=== PATIENT | male | born 1945 | race African-American/Black ===

== ENCOUNTER 2022-02-01 08:38 | Inpatient (IN) ==
[2022-02-01] MEDS ORDERED: 0.9 % Sodium Chloride 1,000 ML IVC ONE (09:37)
[2022-02-01 10:08] LABS: Basophils % 0.3 %; Eosinophils # 0.1 K/mcL (0.0-0.6); Hematocrit 35.2 % (37.5-50.1); Hemoglobin 11.2 g/dL (12.9-16.9); Lymphocytes # 0.8 K/mcL (0.6-4.6); Lymphocytes % 6.3 %; Mean Corpuscular HGB Conc 31.8 g/dL (31.6-35.5); Mean Corpuscular Hemoglobin 31.6 pg (28.0-33.3); Mean Corpuscular Volume 99.4 fL (83.0-100.0); Mean Platelet Volume 9.4 fL (9.4-12.4); Monocytes # 1.2 K/mcL (0.0-1.3); Monocytes % 8.7 %; Nucleated Red Blood Cells 0.3 /100 WBC (0); Platelet Count 207 K/mcL (140-400); Red Blood Count 3.54 M/mcL (4.19-5.50); Red Cell Distribution Width 13.8 % (11.5-14.5); Segmented Neutrophils % 82.7 %; White Blood Count 13.4 K/mcL (4.3-11.1)
[2022-02-01 10:16] LABS: Bilirubin,Urine Negative (Negative); Blood,Urine Negative (Negative); Clarity,Urine Clear (Clear); Color,Urine Colorless (Yellow); Glucose,Urine (UA) Normal (Normal); Ketones,Urine Negative (Negative); Leukocyte Esterase,Urine Negative (Negative); Nitrite,Urine Negative (Negative); PH,Urine 7.5 pH Units (5.0-8.0); Protein,Urine Negative (Neg-Trace); Specific Gravity,Urine 1.011 (1.010-1.025); Urobilinogen,Urine Normal (Normal)
[2022-02-01] MEDS ORDERED: Piperacillin/Tazobactam 3.375 GM in 0.9 % Sodium Chloride Mini Bag 100 ML IVPB ONE (10:18)
[2022-02-01] MEDS ORDERED: Vancomycin 1,750 MG/517.5 ML IV.SOLN IVPB ONE (10:18)
[2022-02-01 10:32] LABS: Alanine Aminotransferase 35 Units/L (7-52); Albumin 3.7 g/dL (3.5-5.7); Albumin/Globulin Ratio 1.4 (1.1-2.2); Alkaline Phosphatase 67 Units/L (34-104); Aspartate Amino Transferase 23 Units/L (13-39); BUN/Creatinine Ratio 21 (6-26); Bilirubin,Direct 0.1 mg/dL (0.0-0.2); Bilirubin,Indirect 0.5 mg/dL (0.0-1.0); Bilirubin,Total 0.6 mg/dL (0.3-1.0); Blood Urea Nitrogen 19 mg/dL (8-23); Carbon Dioxide 28 mEq/L (23-29); Chloride 102 mEq/L (98-107); Globulin 2.6 g/dL (2.4-3.5); Glucose 106 mg/dL (70-105); Osmolality,Calculated 287 (280-300); Sodium 137 mEq/L (136-145); Total Protein 6.3 g/dL (6.4-8.9); Troponin I < 0.03 ng/mL (< 0.04); eGFR For African Americans > 60 (> 60); eGFR For Non-African Americans > 60 (> 60)
[2022-02-01 11:41] LABS: Adenovirus Not Detected (Not Detect); Bordetella Pertussis Not Detected (Not Detect); Chlamydophila pneumoniae Not Detected (Not Detect); Coronavirus 229E Not Detected (Not Detect); Coronavirus HKU1 Not Detected (Not Detect); Coronavirus NL63 Not Detected (Not Detect); Coronavirus OC43 Not Detected (Not Detect); Human Metapneumovirus Not Detected (Not Detect); Human Rhinovirus/Enterovirus Not Detected (Not Detect); Influenza A Subtype 2009 H1 Not Detected (Not Detect); Influenza B Not Detected (Not Detect); Mycoplasma pneumoniae Not Detected (Not Detect); Parainfluenza Virus 1 Not Detected (Not Detect); Parainfluenza Virus 2 Not Detected (Not Detect); Parainfluenza Virus 3 Not Detected (Not Detect); Parainfluenza Virus 4 Not Detected (Not Detect); Respiratory Syncytial Virus Not Detected (Not Detect); SARS-CoV-2 Not Detected (Not Detect)
[2022-02-01] MEDS ORDERED: Melatonin 3 MG TABLET PO PRN (13:18)
[2022-02-01] MEDS ORDERED: Acetaminophen 325 MG TABLET PO PRN (13:18)
[2022-02-01] MEDS ORDERED: Naloxone 0.4 MG/ML INJ IVP PRN (13:18)
[2022-02-01] MEDS ORDERED: Ondansetron ODT 4 MG TAB.RAPDIS SL PRN (13:18)
[2022-02-01] MEDS ORDERED: Vancomycin (wt based) 1,000 MG VIAL IVPB SCH (14:00)
[2022-02-01] MEDS: Piperacillin/Tazobactam 3.375 GM in 0.9 % Sodium Chloride Mini Bag 100 ML IVPB SCH (16:07)
[2022-02-01] MEDS: Ringers Solution, Lactated 1,000 ML IVC SCH ×2 (16:08→21:01)
[2022-02-01 16:32] LABS: ABG Base Excess 2 mEq/L (-2 to 3); ABG HCO3 27 mEq/L (21-27); ABG Oxygen Saturation 96 % (95-98); ABG PCO2 41 mmHg (35-45); ABG PH 7.43 pH Units (7.32-7.45); ABG PO2 83 mmHg (85-104); ABG TCO2 28 mEq/L (20-26)
[2022-02-01] MEDS: *HR* HYDROcodone/Acet 5/325 mg TABLET PO PRN (20:03)
[2022-02-01] MEDS: Vancomycin 1,500 MG/265 ML IV.SOLN IVPB SCH (23:14)
[2022-02-02] MEDS: Piperacillin/Tazobactam 3.375 GM in 0.9 % Sodium Chloride Mini Bag 100 ML IVPB SCH ×3 (01:11→14:58)
[2022-02-02] MEDS: *HR* HYDROcodone/Acet 5/325 mg TABLET PO PRN ×4 (02:15→20:30)
[2022-02-02 03:33] LABS: Basophils % 0.3 %; Eosinophils # 0.2 K/mcL (0.0-0.6); Eosinophils % 1.5 %; Hematocrit 33.8 % (37.5-50.1); Hemoglobin 10.6 g/dL (12.9-16.9); Immature Granulocytes % 0.8 % (0-4); Lymphocytes # 1.7 K/mcL (0.6-4.6); Lymphocytes % 11.3 %; Mean Corpuscular HGB Conc 31.4 g/dL (31.6-35.5); Mean Corpuscular Hemoglobin 31.1 pg (28.0-33.3); Mean Corpuscular Volume 99.1 fL (83.0-100.0); Mean Platelet Volume 9.6 fL (9.4-12.4); Monocytes # 1.6 K/mcL (0.0-1.3); Monocytes % 10.9 %; Neutrophils # 11.2 K/mcL (1.6-8.9); Platelet Count 223 K/mcL (140-400); Red Blood Count 3.41 M/mcL (4.19-5.50); Red Cell Distribution Width 14.2 % (11.5-14.5); Segmented Neutrophils % 75.2 %; White Blood Count 14.8 K/mcL (4.3-11.1)
[2022-02-02 03:51] LABS: Alanine Aminotransferase 28 Units/L (7-52); Albumin 3.6 g/dL (3.5-5.7); Albumin/Globulin Ratio 1.3 (1.1-2.2); Alkaline Phosphatase 63 Units/L (34-104); Aspartate Amino Transferase 17 Units/L (13-39); BUN/Creatinine Ratio 21 (6-26); Bilirubin,Total 0.7 mg/dL (0.3-1.0); Blood Urea Nitrogen 16 mg/dL (8-23); Calcium 8.9 mg/dL (8.6-10.3); Carbon Dioxide 27 mEq/L (23-29); Chloride 104 mEq/L (98-107); Chol/HDL Ratio 2.7 (0-4.9); Cholesterol 202 mg/dL (< 200); Globulin 2.7 g/dL (2.4-3.5); Glucose 100 mg/dL (70-105); HDL Cholesterol 76 mg/dL (40-59); LDL Cholesterol,Calculated 117 mg/dL (< 100); Magnesium 1.7 mg/dL (1.6-2.6); Osmolality,Calculated 287 (280-300); Phosphorous 3.1 mg/dL (2.7-4.5); Potassium 3.8 mEq/L (3.5-5.1); Sodium 138 mEq/L (136-145); Total Protein 6.3 g/dL (6.4-8.9); Triglycerides 46 mg/dL (< 150); eGFR For African Americans > 60 (> 60); eGFR For Non-African Americans > 60 (> 60)
[2022-02-02 10:06] LABS: INR 1.1; Prothrombin Time 12.2 Seconds (9.4-12.1)
[2022-02-02] MEDS: Vancomycin 1,500 MG/265 ML IV.SOLN IVPB SCH (12:35)
[2022-02-02] MEDS ORDERED: Ibuprofen 600 MG TABLET PO ONE (13:09)
[2022-02-02] MEDS ORDERED: SUMAtriptan succinate 50 MG TABLET PO PRN (13:55)
[2022-02-02] MEDS ORDERED: CarBAMazepine 100 MG TABLET PO SCH (17:00)
[2022-02-02] MEDS ORDERED: Gabapentin 400 MG CAPSULE PO SCH (17:00)
[2022-02-02] MEDS: *HR* Enoxaparin 120 MG/0.8 ML SYRINGE SQ SCH (17:47)
[2022-02-02] MEDS ORDERED: Warfarin perPT PO PRN (18:00)
[2022-02-02] MEDS ORDERED: *HR* Warfarin 5 MG TABLET PO ONE (18:00)
[2022-02-02] MEDS: carBAMazepine 200 MG TABLET PO SCH (20:30)
[2022-02-02] MEDS: Gabapentin 400 MG CAPSULE PO SCH (20:30)
[2022-02-02] MEDS: CARBAMAZEPINE 200 MG PO SCH (20:32)
[2022-02-02] MEDS ORDERED: risperiDONE 0.25 MG TABLET PO SCH (21:00)
[2022-02-02] MEDS: Ipratropium/Albuterol Neb 3 ML IH SCH (21:19)
[2022-02-02] MEDS: Budesonide/Formoterol 80/4.5 1 PUFF INH IH SCH (21:19)
[2022-02-03] MEDS: Piperacillin/Tazobactam 3.375 GM in 0.9 % Sodium Chloride Mini Bag 100 ML IVPB SCH ×4 (01:08→22:57)
[2022-02-03] MEDS: *HR* HYDROcodone/Acet 5/325 mg TABLET PO PRN ×4 (03:07→22:57)
[2022-02-03 04:21] LABS: Hematocrit 32.8 % (37.5-50.1); Hemoglobin 10.2 g/dL (12.9-16.9); Mean Corpuscular HGB Conc 31.1 g/dL (31.6-35.5); Mean Corpuscular Hemoglobin 32.1 pg (28.0-33.3); Mean Corpuscular Volume 103.1 fL (83.0-100.0); Mean Platelet Volume 9.8 fL (9.4-12.4); Platelet Count 223 K/mcL (140-400); Red Blood Count 3.18 M/mcL (4.19-5.50); Red Cell Distribution Width 13.8 % (11.5-14.5); White Blood Count 9.8 K/mcL (4.3-11.1)
[2022-02-03 04:31] LABS: BUN/Creatinine Ratio 15 (6-26); Blood Urea Nitrogen 12 mg/dL (8-23); Carbon Dioxide 28 mEq/L (23-29); Chloride 104 mEq/L (98-107); Glucose 108 mg/dL (70-105); Osmolality,Calculated 284 (280-300); Potassium 4.3 mEq/L (3.5-5.1); Sodium 137 mEq/L (136-145); eGFR For African Americans > 60 (> 60); eGFR For Non-African Americans > 60 (> 60)
[2022-02-03] MEDS: *HR* Enoxaparin 120 MG/0.8 ML SYRINGE SQ SCH ×2 (06:34→18:15)
[2022-02-03] MEDS: carBAMazepine 200 MG TABLET PO SCH ×2 (09:07→20:46)
[2022-02-03] MEDS: Gabapentin 400 MG CAPSULE PO SCH ×3 (09:07→20:46)
[2022-02-03] MEDS: risperiDONE 0.25 MG TABLET PO SCH (09:08)
[2022-02-03] MEDS: Aspirin Enteric Coated 81 MG Tablet PO SCH (09:08)
[2022-02-03] MEDS: CARBAMAZEPINE 200 MG PO SCH ×2 (09:09→20:43)
[2022-02-03] MEDS: Furosemide 20 MG TABLET PO SCH (09:11)
[2022-02-03] MEDS: Ipratropium/Albuterol Neb 3 ML IH SCH ×2 (10:08→22:10)
[2022-02-03] MEDS: Budesonide/Formoterol 80/4.5 1 PUFF INH IH SCH ×2 (10:09→22:10)
[2022-02-03 10:16] LABS: INR 1.1
[2022-02-03] MEDS ORDERED: Saline Nasal Spray 44 ML BOTTLE NS PRN (13:05)
[2022-02-03] MEDS ORDERED: *HR* Warfarin 10 MG TABLET PO ONE (18:00)
[2022-02-03] MEDS: Fluticasone Propionate Nasal 50 MCG/SPRAY BOTTLE NS SCH (20:43)
[2022-02-04] MEDS: *HR* HYDROcodone/Acet 5/325 mg TABLET PO PRN ×2 (05:32→18:58)
[2022-02-04] MEDS: *HR* Enoxaparin 120 MG/0.8 ML SYRINGE SQ SCH ×2 (05:33→18:16)
[2022-02-04] MEDS: Gabapentin 400 MG CAPSULE PO SCH ×3 (08:07→20:24)
[2022-02-04] MEDS: risperiDONE 0.25 MG TABLET PO SCH (08:08)
[2022-02-04] MEDS: Aspirin Enteric Coated 81 MG Tablet PO SCH (08:08)
[2022-02-04] MEDS: Piperacillin/Tazobactam 3.375 GM in 0.9 % Sodium Chloride Mini Bag 100 ML IVPB SCH ×3 (08:08→23:48)
[2022-02-04] MEDS: carBAMazepine 200 MG TABLET PO SCH ×2 (08:08→20:24)
[2022-02-04] MEDS: Fluticasone Propionate Nasal 50 MCG/SPRAY BOTTLE NS SCH ×2 (08:09→20:23)
[2022-02-04] MEDS: Furosemide 20 MG TABLET PO SCH (08:10)
[2022-02-04] MEDS: CARBAMAZEPINE 200 MG PO SCH ×2 (08:10→20:24)
[2022-02-04] MEDS: Ipratropium/Albuterol Neb 3 ML IH SCH ×2 (10:11→21:54)
[2022-02-04] MEDS: Budesonide/Formoterol 80/4.5 1 PUFF INH IH SCH ×2 (10:20→21:54)
[2022-02-04] MEDS ORDERED: *HR* Warfarin 10 MG TABLET PO ONE (18:00)
[2022-02-05] MEDS: *HR* HYDROcodone/Acet 5/325 mg TABLET PO PRN ×4 (01:06→20:18)
[2022-02-05 04:13] LABS: INR 1.1; Prothrombin Time 12.2 Seconds (9.4-12.1)
[2022-02-05] MEDS: *HR* Enoxaparin 120 MG/0.8 ML SYRINGE SQ SCH ×2 (05:45→16:56)
[2022-02-05] MEDS: Ipratropium/Albuterol Neb 3 ML IH SCH ×2 (07:29→21:35)
[2022-02-05] MEDS: Budesonide/Formoterol 80/4.5 1 PUFF INH IH SCH ×2 (07:29→21:36)
[2022-02-05] MEDS: carBAMazepine 200 MG TABLET PO SCH ×2 (07:59→20:17)
[2022-02-05] MEDS: Furosemide 20 MG TABLET PO SCH (07:59)
[2022-02-05] MEDS: Gabapentin 400 MG CAPSULE PO SCH ×3 (08:00→20:17)
[2022-02-05] MEDS: risperiDONE 0.25 MG TABLET PO SCH (08:00)
[2022-02-05] MEDS: Aspirin Enteric Coated 81 MG Tablet PO SCH (08:00)
[2022-02-05] MEDS: Piperacillin/Tazobactam 3.375 GM in 0.9 % Sodium Chloride Mini Bag 100 ML IVPB SCH ×4 (08:01→23:39)
[2022-02-05] MEDS: Fluticasone Propionate Nasal 50 MCG/SPRAY BOTTLE NS SCH ×2 (08:03→21:02)
[2022-02-05] MEDS: CARBAMAZEPINE 200 MG PO SCH (08:04)
[2022-02-05 14:50] LABS: Amphetamine Screen,Urine Negative ng/mL (Cutoff=1000); Barbiturate Screen,Urine Negative ng/mL (Cutoff=200); Benzodiazepines Screen,Urine Negative ng/mL (Cutoff=200); Cannabinoid Screen,Urine Negative ng/mL (Cutoff = 50); Cocaine Screen,Urine Negative ng/mL (Cutoff= 300); Opiate Screen,Urine Positive ng/mL (Cutoff=300); Phencyclidine Screen,Urine Negative ng/mL (Cutoff=25)
[2022-02-05] MEDS ORDERED: *HR* Warfarin 10 MG TABLET PO ONE (18:00)
[2022-02-05] MEDS ORDERED: *HR* Warfarin 7.5 MG TABLET PO ONE (18:00)
[2022-02-06] MEDS: *HR* Enoxaparin 120 MG/0.8 ML SYRINGE SQ SCH (05:21)
[2022-02-06 06:14] LABS: INR 1.1; Prothrombin Time 12.7 Seconds (9.4-12.1)
[2022-02-06] MEDS: Gabapentin 400 MG CAPSULE PO SCH (08:07)
[2022-02-06] MEDS: Aspirin Enteric Coated 81 MG Tablet PO SCH (08:08)
[2022-02-06] MEDS: *HR* HYDROcodone/Acet 5/325 mg TABLET PO PRN (08:08)
[2022-02-06] MEDS: Piperacillin/Tazobactam 3.375 GM in 0.9 % Sodium Chloride Mini Bag 100 ML IVPB SCH (08:08)
[2022-02-06] MEDS: carBAMazepine 200 MG TABLET PO SCH (08:08)
[2022-02-06] MEDS: risperiDONE 0.25 MG TABLET PO SCH (08:08)
[2022-02-06] MEDS: Fluticasone Propionate Nasal 50 MCG/SPRAY BOTTLE NS SCH (08:09)
[2022-02-06] MEDS: Furosemide 20 MG TABLET PO SCH (08:13)
[2022-02-06] MEDS: Budesonide/Formoterol 80/4.5 1 PUFF INH IH SCH (09:29)
[2022-02-06] MEDS: Ipratropium/Albuterol Neb 3 ML IH SCH (09:31)
[2022-02-06 12:14] LABS: Influenza A PCR Negative (Negative); Influenza B PCR Negative (Negative); Resp. Syncytial Virus PCR Negative (Negative)
[2022-02-06 12:15] LABS: SARS-CoV-2 by PCR (In House) Negative (Negative)
[2022-02-06 15:21] VITALS: BP 151/68; PULSE 90; TEMP 97.9; O2SAT 93
[2022-02-06] MEDS ORDERED: *HR* Warfarin 10 MG TABLET PO ONE (18:00)
== END 2022-02-06 15:54 | disposition home or self-care (01) | DRG 871 ==
LOC: 2NENU 08:38 → EMEROOARM 08:38 → SUATTDRO 11:51 → 2NENU 13:53
PROVIDERS: ADMIT Family Medicine; ATTEND Internal Medicine